=== PATIENT | female | born 1930 | race Caucasian/White ===

== ENCOUNTER 2018-10-14 06:56 | Inpatient (IN) | payer OTHER ==
[~2018-10-14] VITALS: Ht 152.4 cm; Wt 69.4 kg
[~2018-10-14 06:56] MED LIST: AMILORIDE HCL5 MG; PRAVACHOL10 MG; VASOTEC20 MG
[2018-10-14] MEDS ORDERED: CARDURA1 MG PO (08:11)
[2018-10-14] MEDS ORDERED: NORVASC2.5 M1 PO (08:12)
[2018-10-14] MEDS ORDERED: LATANOPROST2.5 ML OP (08:12)
[2018-10-20] MEDS ORDERED: TYLENOL EXTRA500 MG PO (15:36)
== END 2018-10-20 15:58 | disposition home or self-care (01) | DRG 330 ==
LOC: ER 06:56 → SURH 10-15 10:42 → SURG 10-15 10:42 → SURH 10-15 13:39
PROVIDERS: ADMIT Surgery
PROC: 0T9B70Z Drainage of Bladder with Drainage Device, Via Natural or Artificial Opening (ICD-10-PCS; 2018-10-15)
PROC: B246ZZZ Ultrasonography of Right and Left Heart (ICD-10-PCS; 2018-10-15)
PROC: 0KUL0KZ Supplement Left Abdomen Muscle with Nonautologous Tissue Substitute, Open Approach (ICD-10-PCS; 2018-10-16)
PROC: 0KUK0KZ Supplement Right Abdomen Muscle with Nonautologous Tissue Substitute, Open Approach (ICD-10-PCS; 2018-10-16)
PROC: 0WJG0ZZ Inspection of Peritoneal Cavity, Open Approach (ICD-10-PCS; 2018-10-16)
PROC: 0WUF0JZ Supplement Abdominal Wall with Synthetic Substitute, Open Approach (ICD-10-PCS; 2018-10-16)
PROC: 0DQ80ZZ Repair Small Intestine, Open Approach (ICD-10-PCS; principal; 2018-10-16 07:15)
PROC: 3E0F7GC Introduction of Other Therapeutic Substance into Respiratory Tract, Via Natural or Artificial Opening (ICD-10-PCS; 2018-10-19)
DX: K43.6 Other and unspecified ventral hernia with obstruction, without gangrene (principal); K56.51 Intestinal adhesions [bands], with partial obstruction; R65.10 Systemic inflammatory response syndrome (SIRS) of non-infectious origin without acute organ dysfunction; G40.009 Localization-related (focal) (partial) idiopathic epilepsy and epileptic syndromes with seizures of localized onset, not intractable, without status epilepticus; K91.71 Accidental puncture and laceration of a digestive system organ or structure during a digestive system procedure; I10 Essential (primary) hypertension; E87.6 Hypokalemia; Z93.1 Gastrostomy status